=== PATIENT | female | born 1950 | race Native Hawaiian/Other Pacific Islander ===

== ENCOUNTER 2019-03-09 16:01 | Outpatient (CLI) | payer OTHER ==
[2019-03-09 16:09] LABS: PLATELET COUNT 378 K/uL (152-353)
[2019-03-09 16:41] LABS: POTASSIUM 3.7 mmol/L (3.6-5.2)
== END 2019-03-09 23:07 | disposition home or self-care (01) ==
LOC: LAB 16:01
PROVIDERS: Internal Medicine Infectious Disease
DX: M46.34 Infection of intervertebral disc (pyogenic), thoracic region (principal); B95.62 Methicillin resistant Staphylococcus aureus infection as the cause of diseases classified elsewhere; G06.1 Intraspinal abscess and granuloma; Z79.2 Long term (current) use of antibiotics; C73 Malignant neoplasm of thyroid gland; C79.51 Secondary malignant neoplasm of bone
CPT/HCPCS: 80053; 85027; 86140